=== PATIENT | female | born 1990 | race Two or more races ===

== ENCOUNTER 2023-04-12 13:30 | Emergency (ER) | payer MEDICAID ==
[2023-04-12 15:57] LABS: Urine Bacteria MANY /hpf (None Seen); Urine Blood 1+ /uL (Negative); Urine Clarity HAZY (Clear); Urine Color Yellow (Yellow); Urine Mucus FEW (None Seen); Urine Protein, UAD TRACE (Negative); Urine Specific Gravity 1.036 (1.001-1.035); Urine Urobilinogen Normal (Negative); Urine WBC 4 /hpf (0 - 5); Urine pH 5.5 (5.0-8.0)
[2023-04-12] MEDS ORDERED: METR-344 PO (19:20)
[2023-04-12 19:37] VITALS: BP 110/47; PULSE 61; RESP 18; TEMP 98.5; O2SAT 99
== END 2023-04-12 19:38 | disposition home or self-care (01) ==
LOC: ER 13:30
DX: N76.0 Acute vaginitis (principal)
CPT/HCPCS: 81001; 81025; 86256

== ENCOUNTER 2024-05-12 17:33 | Emergency (ER) | payer MEDICAID ==
[~2024-05-12] VITALS: Ht 162.6 cm; Wt 67.0 kg
[~2024-05-12 17:33] MED LIST: METR-344 PO
[2024-05-12 18:04] VITALS: BP 106/56; PULSE 75; RESP 21; TEMP 98.3; O2SAT 99
[2024-05-12] MEDS: KETOROLAC TROMETH 60MG/2ML VIAL IM ONE (18:19)
[2024-05-12] MEDS ORDERED: METH-1181 PO (18:58)
[2024-05-12] MEDS ORDERED: METH4PAK PO (18:58)
== END 2024-05-12 19:03 | disposition home or self-care (01) ==
LOC: ER 17:33
DX: S33.8XXA Sprain of other parts of lumbar spine and pelvis, initial encounter (principal); Z79.899 Other long term (current) drug therapy; X58.XXXA Exposure to other specified factors, initial encounter; Y93.89 Activity, other specified; Y92.89 Other specified places as the place of occurrence of the external cause; Y99.8 Other external cause status
CPT/HCPCS: 72100; 96372; 99283; J1885

== ENCOUNTER 2024-08-24 18:52 | Emergency (ER) | payer MEDICAID ==
[~2024-08-24] VITALS: Ht 162.6 cm; Wt 69.2 kg
[~2024-08-24 18:52] MED LIST changes: +METH-1181 PO; +METH4PAK PO
[2024-08-24 20:00] VITALS: BP 125/80; PULSE 70; RESP 18; O2SAT 99
--- NOTE | 2024-08-24 20:31 | ED.PDOC ---
SQL PROGRAMMER ANALYST HPI Comments 33Y F with PMHx presents to ED for chief complaint vaginal bleeding x2days with suprapubic cramping x4days. Pt states she sees blood when wiping. Pt is currently 6.5 weeks with LMP 07/10/2024. SQL PROGRAMMER ANALYST hx . Pt denies n/v/d, dysuria, chest pain, and SOB. Pt is currently taking vitamins. SQL PROGRAMMER ANALYST appt is pending. No other symptoms reported. Chief Complaint: Time Seen by MD: 20:22 Reviewed Notes: Nurses Notes, Computer System Technician Notes, Medications Allergies: Coded Allergies: NO KNOWN ALLERGIES (Unverified , 04/12/23) Home Meds Active Scripts Cephalexin Monohydrate (Cephalexin) 500 Mg Cap, 500 MG PO Q6HR for 5 Days, #20 CAP Prov:CHRISTINA HINOJOSA MD 08/24/24 Methocarbamol (Methocarbamol) 500 Mg Tab, 500 MG PO HS for 7 Days, #7 TAB Prov:DEBRA ERNST SHOE REPAIRMAN 05/12/24 Methylprednisolone (Medrol Dosepak) 4 Mg Alexey, 4 MG PO UD for 6 Days, #21 TAB UAD Prov:DEBRA ERNSTP 05/12/24 Metronidazole (Flagyl) 500 Mg Tab, 1 TAB PO BID for 7 Days, #14 TAB Prov:ISIDRA MORAES [facility] 04/12/23 Information Source: Patient Mode of Arrival: Ambulatory Timing: Days Severity: Mild Vaginal Discharge: None Vaginal Lesions: None Vaginal Mass: None Onset Of Mass/Bleeding: Spontaneous Sexual Activity: Last Consensual [place]: Unknown Control: None History of: Current Blood Type: Unknown Associated Signs and Symptoms: Vaginal Bleeding, Cramping Past Medical History PAST MEDICAL HISTORY: Denies Surgical History: NET PROGRAMMER History: No Pertinent NET PROGRAMMER History Family History Family History: Reviewed,noncontributory to illness Social History Smoker: Non-Smoker Alcohol: Denies ETOH Use Drugs: Denies Drug Use Lives In: Home Constitutional: denies: chills, diaphoresis, fatigue, fever, malaise, sweats, weakness, others EENTM: denies: blurred vision, double vision, ear bleeding, ear discharge, ear drainage, ear pain, ear ringing, eye pain, eye redness, hearing loss, mouth pain, mouth swelling, nasal discharge, nose bleeding, nose congestion, nose pain, photophobia, tearing, throat pain, throat swelling, voice changes, others Respiratory: denies: cough, hemoptysis, orthopnea, SOB at rest, shortness of breath, SOB with excertion, stridor, wheezing, others Cardiovascular: denies: chest pain, dizzy spells, diaphoresis, Dyspnea on exertion, edema, irregular heart beat, left arm pain, lightheadedness, pal pitations, PND, syncope, others Gastrointestinal: denies: abdomen distended, abdominal pain, blood streaked bowels, constipated, diarrhea, dysphagia, difficulty swallowing, hematemesis, melena, nausea, poor appetite, poor fluid intake, rectal bleeding, rectal pain, vomiting, others Genitourinary: reports: abnormal vagina bleeding, pain, ; denies: burning, dyspareunia, dysuria, flank pain, frequency, hematuria, incontinence, vagina discharge, urgency, others Neurological: denies: dizziness, fainting, headache, left sided numbness, left sided weakness, numbness, paresthesia, pre-existing deficit, right sided numbness, right sided weakness, seizure, speech problems, tingling, tremors, weakness, others Musculoskeletal: denies: back pain, gout, joint pain, joint swelling, muscle pain, muscle stiffness, neck pain, others Integumetry: denies: bruises, change in color, change in hair/nails, dryness, laceration, lesions, lumps, rash, wounds, others Allergic/Immunocompromised: denies: Difficulty Healing, Frequent Infections, Hives, Itching, others Hematologic/Lymphatic: denies: anemia, blood clots, easy bleeding, easy bruising, swollen glands, others Endocrine: denies: excessive hunger, excessive sweating, excessive thirst, excessive urination, flushing, intolerance to cold, intolerance to heat, unexplained weight gain, unexplained weight loss, others Psychiatric: denies: anxiety, bipolar disorder, depression, hopeless, panic disorder, schizophrenia, sleepless, suicidal, others All Other Systems: Reviewed and Negative Physical Exam General Appearance: No Apparent Distress, Normal HEENT: Normal ENT Inspection, Pharynx Normal, TMs Normal Neck: Full Range of Motion, Non-Tender, Normal, Normal Inspection Respiratory: Chest Non-Tender, Lungs Clear, No Accessory Muscle Use, No Respiratory Distress, Normal Breath Sounds Cardiovascular: No Edema, No JVD, No Murmur, No Gallop, Normal Peripheral Pulses, Regular Rate/Rhythm Breast Exam: Deferred Gastrointestinal: No Organomegaly, Non Tender, No Pulsatile Mass, Normal Bowel Sounds, Soft Genitalia: Deferred Pelvic: Deferred Rectal: Deferred Extremities: No calf tenderness, Normal capillary refill, Normal inspection, Normal range of motion, Non-tender, No pedal edema Musculoskeletal : Apperance: Normal Neurologic: Alert, wind farm support specialist II-XII nml as Tested, No Motor Deficits, Normal Affect, Normal Mood, No Sensory Deficits Cerebellar Function: Normal Reflexes: Normal Skin: Dry, Normal Color, Warm Lymphatic: No Adenopathy Was a procedure done? Was a procedure done?: No Differential Diagnosis (NET PROGRAMMER) Vaginal Bleeding: - Threatened, Ectopic , UTI X-Ray, Labs, Meds, VS Vital Signs Date Time Temp Pulse Resp B/P (MAP) Pulse Ox O2 Delivery O2 Flow Rate FiO2 08/24/24 20:00 98.0 70 18 125/80 (95) 99 Lab Test 08/24/24 20:32 08/24/24 20:00 Range/Units White Blood Count 7.5 4.4-10.8 10^3/uL Red Blood Count 4.69 4.0-5.20 10^6/uL Hemoglobin 14.2 12.2-16.2 g/dL Hematocrit 41.8 36.0-46.0 % Mean Corpuscular Volume 89.3 80.0-100.0 fL Mean Corpuscular Hemoglobin 30.3 28.0-32.0 pg Mean Corpuscular Hemoglobin Concent 34.0 32.0-36.0 g/dL Red Cell Distribution Width 13.7 11.8-14.3 % Platelet Count 255 140-450 10^3/uL Mean Platelet Volume 7.2 6.9-10.8 fL Neutrophils (%) (Auto) 50.2 37.0-80.0 % Lymphocytes (%) (Auto) 38.2 10.0-50.0 % Monocytes (%) (Auto) 9.7 0.0-12.0 % Eosinophils (%) (Auto) 1.6 0.0-7.0 % Basophils (%) (Auto) 0.3 0.0-2.0 % Neutrophils # (Auto) 3.8 1.6-8.6 10 ^3/uL Lymphocytes # (Auto) 2.9 0.4-5.4 10 ^3/uL Monocytes # (Auto) 0.7 0-1.3 10 ^3/uL Eosinophils # (Auto) 0.1 0-0.8 10 ^3/uL Basophils # (Auto) 0 0-0.2 10 ^3/uL Nucleated Red Blood Cells 0.1 % Sodium Level 138 136-145 mmol/L Potassium Level 3.8 3.5-5.1 mmol/L Chloride Level 107 98-107 mmol/L Carbon Dioxide Level 25 20-31 mmol/L Anion Gap 6 5-15 Blood Urea Nitrogen 11 9-23 mg/dL Creatinine 0.65 0.550-1.02 mg/dL Glomerular Filtration Rate Calc 120 >90 mL/min BUN/Creatinine Ratio 16.9 10.0-20.0 Serum Glucose 87 74-106 mg/dL Calcium Level 10.1 8.7-10.4 mg/dL Beta HCG, Quantitative 66846.9 H 1.5-4.2 mIU/mL Urine Color Light-yellow Yellow Urine Clarity Turbid H Clear Urine pH 6.0 5.0-9.0 Urine Specific [place] 1.021 1.001-1.035 Urine Protein Negative Negative Urine Ketones Negative Negative Urine Blood 2+ H Negative /uL Urine Nitrite Negative Negative Urine Bilirubin Negative Negative Urine Urobilinogen Normal Negative mg/dL Urine Leukocyte Esterase 1+ Negative /uL Urine RBC 9 0 - 4 /hpf Urine WBC 4 0 - 5 /hpf Urine Squamous Epithelial Cells Few <5 /hpf Urine Bacteria Mod H None Seen /hpf Urine Mucus Few None Seen Urine Glucose Normal Normal mg/dL Urine Test Positive Negative X-Ray, Labs, Meds, VS Comment 33-year-old female approximately 6 weeks here today with lower abdominal cramping and vaginal spotting when she wipes. Vital signs stable, afebrile. Physical exam as above without any acute findings. Pelvic exam deferred as per patient's request. Labs overall reassuring without evidence of significant anemia. Patient also noted to be Rh positive, RhoGAM not indicated. UA with evidence of bacteriuria, patient was started on prescription for Keflex which was sent to her preferred pharmacy. We will ultrasound with evidence of single viable IUP. Patient was instructed to follow up with her OBGYN later this week for re-evaluation which she stated that she would be able to do. Roscoe martin was given strict return precautions for return of bleeding, or any other concerning signs or symptoms. Patient was discharged home in stable condition ambulating with a steady gait in no distress. Time of 1ST Reevaluation: 20:52 Reevaluation 1ST: Unchanged Patient Education/Counseling: Diagnosis, Treatment Family Education/Counseling: Diagnosis, Treatment Departure 1 Departure Time of Disposition: 22:32 Impression: Primary Impression: Threatened Additional Impression: Bacteriuria during Disposition: 01 HOME / SELF CARE / HOMELESS Condition: Stable e-Prescriptions Cephalexin Monohydrate (Cephalexin) 500 Mg Cap 500 MG PO Q6HR for 5 Days, #20 CAP Prov: CHRISTINA HINOJOSA MD 08/24/24 Critical Care Note Critical Care Time?: No Stability Stability form required: No Heart Score Heart Score: Heart Score Response (Comments) Value History N/A 0 EKG N/A 0 Age N/A 0 Risk Factors N/A 0 Troponin N/A 0 Total 0 I personally scribed for CHRISTINA HINOJOSA MD ([email or web address]) on 08/24/24 at 20:31. Electronically submitted by Isadora Soto ([email or web address]). CHRISTINA HINOJOSA MD Aug 24, 2024 20:31
[2024-08-24 20:51] LABS: Chloride 107 mmol/L (98-107); Potassium 3.8 mmol/L (3.5-5.1); Sodium 138 mmol/L (136-145)
[2024-08-24 20:52] LABS: Anion Gap 6 (5-15); Calcium 10.1 mg/dL (8.7-10.4); Carbon Dioxide 25 mmol/L (20-31)
[2024-08-24 20:57] LABS: BUN/Creatinine Ratio 16.9 (10.0-20.0); Basophils # (auto) 0 10 ^3/uL (0-0.2); Basophils % (auto) 0.3 % (0.0-2.0); Blood Urea Nitrogen 11 mg/dL (9-23); Eosinophils # (auto) 0.1 10 ^3/uL (0-0.8); Eosinophils % (auto) 1.6 % (0.0-7.0); Glucose 87 mg/dL (74-106); Hematocrit 41.8 % (36.0-46.0); Hemoglobin 14.2 g/dL (12.2-16.2); Lymphocytes # (auto) 2.9 10 ^3/uL (0.4-5.4); Lymphocytes % (auto) 38.2 % (10.0-50.0); Mean Corpuscular Hemoglobin 30.3 pg (28.0-32.0); Mean Corpuscular Volume 89.3 fL (80.0-100.0); Monocytes # (auto) 0.7 10 ^3/uL (0-1.3); Monocytes % (auto) 9.7 % (0.0-12.0); Neutrophils # (auto) 3.8 10 ^3/uL (1.6-8.6); Neutrophils % (auto) 50.2 % (37.0-80.0); Nucleated Red Blood Cells % 0.1 %; Platelet Count (auto) 255 10^3/uL (140-450); Red Blood Cells 4.69 10^6/uL (4.0-5.20); Red Cell Distribution Width 13.7 % (11.8-14.3); White Blood Cell 7.5 10^3/uL (4.4-10.8)
[2024-08-24 21:17] LABS: Urine Bacteria MOD /hpf (None Seen); Urine Blood 2+ /uL (Negative); Urine Clarity Turbid (Clear); Urine Color Light-Yellow (Yellow); Urine Mucus FEW (None Seen); Urine Protein, UAD Negative (Negative); Urine Specific Gravity 1.021 (1.001-1.035); Urine Squamous Epithelial Cell FEW /hpf (<5); Urine Urobilinogen Normal (Negative); Urine WBC 4 /hpf (0 - 5)
--- NOTE | 2024-08-24 22:12 | DVH ---
OBSTETRIC ULTRASOUND PRIOR TO 14 WEEKS CLINICAL INDICATION: blood streaks when wiping beta-hCG 42124 TECHNIQUE: Multiple grayscale ultrasound images were obtained of the pelvis via transabdominal and tr ansvaginal approach for obstetric evaluation. Limited color Doppler and spectral Doppler acquisitions were also obtained. COMPARISON: None FINDINGS: Uterus: 8.0 x 6.1 x 6.0 cm. Nabothian cyst in the cervix There is a single intrauterine gestational s ac is visualized. A pole is visualized measuring 0.09 cm compatible with an estimated gestation al age of 5 weeks, 6 days. cardiac activity is present with heart rate of 111 beats per minute . A normal yolk sac is present. Right adnexa: right ovary 3.4 x 1.8 x 2.4 cm. Normal arterial blood flow in the ovary. No right adnex al mass seen. Left adnexa: left ovary 3.4 x 2.1 x 2.6 cm. Normal arterial blood flow in the ovary. No left adnexal mass seen. Small cyst in the left ovary measures up to 1.6 cm with peripheral vascularity likely a co rpus luteum cyst. Other: None IMPRESSION: Single living intrauterine with an estimated gestational age of 5 weeks, 6 days, correspo nding to an estimated date of delivery of 04/20/2025.
[2024-08-24] MEDS ORDERED: CEPH500C PO (22:30)
== END 2024-08-24 23:10 | disposition home or self-care (01) ==
LOC: ER 18:52
DX: O20.0 Threatened abortion (principal); O99.891 Other specified diseases and conditions complicating pregnancy; R82.71 Bacteriuria; Z3A.01 Less than 8 weeks gestation of pregnancy; Z98.890 Other specified postprocedural states; Z79.899 Other long term (current) drug therapy
CPT/HCPCS: 36415; 76801; 76817; 80048; 81001; 81025; 84702; 85025; 86850; 86900; 86901

== ENCOUNTER 2024-09-18 07:28 | Emergency (ER) | payer MEDICAID ==
[~2024-09-18] VITALS: Ht 167.6 cm; Wt 69.2 kg
[~2024-09-18 07:28] MED LIST changes: +CEPH500C PO
[2024-09-18 07:31] VITALS: PULSE 82; RESP 16; O2SAT 98
--- NOTE | 2024-09-18 08:16 | ED.PDOC ---
OPERATIONS BUSINESS PARTNER HPI Comments 34 year old female presents to the ED with chief complaint of vaginal bleeding during . Patient reports that she has been experiencing worsening vaginal bleeding with associated abdominal cramping since Tuesday, saturating 2 pads since this morning. Patient relays that her LMP was on 07/10 and she is currently 10 weeks . Patient states she has not seen her OBGYN as of yet. Patient is . Patient denies any N/V, vaginal discharge, fever, chills, dizziness, or headache. Chief Complaint: Vaginal Bleed Time Seen by MD: 08:14 Reviewed Notes: Nurses Notes, Medications, Allergies Allergies: Coded Allergies: NO KNOWN ALLERGIES (Unverified , 04/12/23) Home Meds Active Scripts Cephalexin Monohydrate (Cephalexin) 500 Mg Cap, 500 MG PO Q6HR for 5 Days, #20 CAP Prov:CHRISTINA HINOJOSA MD 08/24/24 Methocarbamol (Methocarbamol) 500 Mg Tab, 500 MG PO HS for 7 Days, #7 TAB Prov:DEBRA ERNSTP 05/12/24 Methylprednisolone (Medrol Dosepak) 4 Mg Alexey, 4 MG PO UD for 6 Days, #21 TAB UAD Prov:DEBRA ERNSTP 05/12/24 Metronidazole (Flagyl) 500 Mg Tab, 1 TAB PO BID for 7 Days, #14 TAB Prov:ISIDRA MORAES [facility] 04/12/23 Information Source: Patient Mode of Arrival: Ambulatory Timing: Days Prehospital treatment: None Severity: Moderate Vaginal Discharge: None Vaginal Lesions: None Bleeding Quality: Bright Red Vaginal Mass: None Onset Of Mass/Bleeding: Spontaneous Sexual Activity: Last Consensual [place]: Unknown Control: None History of: Current Associated Signs and Symptoms: Vaginal Bleeding, Abdominal Pain Past Medical History PAST MEDICAL HISTORY: Denies Surgical History: GUM MACHINE OPERATOR History: No Pertinent GUM MACHINE OPERATOR History 3 Para 2 Family History Family History: Reviewed,noncontributory to illness Social History Smoker: Non-Smoker Alcohol: Denies ETOH Use Drugs: Denies Drug Use Lives In: Home Constitutional: denies: chills, diaphoresis, fatigue, fever, malaise, sweats, weakness, others EENTM: denies: blurred vision, double vision, ear bleeding, ear discharge, ear drainage, ear pain, ear ringing, eye pain, eye redness, hearing loss, mouth pain, mouth swelling, nasal discharge, nose bleeding, nose congestion, nose pain, photophobia, tearing, throat pain, throat swelling, voice changes, others Respiratory: denies: cough, hemoptysis, orthopnea, SOB at rest, shortness of breath, SOB with excertion, stridor, wheezing, others Cardiovascular: denies: chest pain, dizzy spells, diaphoresis, Dyspnea on exertion, edema, irregular heart beat, left arm pain, lightheadedness, palpitat ions, PND, syncope, others Gastrointestinal: reports: abdominal pain; denies: abdomen distended, blood streaked bowels, constipated, diarrhea, dysphagia, difficulty swallowing, hematemesis, melena, nausea, poor appetite, poor fluid intake, rectal bleeding, rectal pain, vomiting, others Genitourinary: reports: abnormal vagina bleeding, ; denies: burning, dyspareunia, dysuria, flank pain, frequency, hematuria, incontinence, pain, vagina discharge, urgency, others Neurological: denies: dizziness, fainting, headache, left sided numbness, left sided weakness, numbness, paresthesia, pre-existing deficit, right sided numbness, right sided weakness, seizure, speech problems, tingling, tremors, weakness, others Musculoskeletal: denies: back pain, gout, joint pain, joint swelling, muscle pain, muscle stiffness, neck pain, others Integumetry: denies: bruises, change in color, change in hair/nails, dryness, laceration, lesions, lumps, rash, wounds, others Allergic/Immunocompromised: denies: Difficulty Healing, Frequent Infections, Hives, Itching, others Hematologic/Lymphatic: denies: anemia, blood clots, easy bleeding, easy bruising, swollen glands, others Endocrine: denies: excessive hunger, excessive sweating, excessive thirst, excessive urination, flushing, intolerance to cold, intolerance to heat, unexplained weight gain, unexplained weight loss, others Psychiatric: denies: anxiety, bipolar disorder, depression, hopeless, panic disorder, schizophrenia, sleepless, suicidal, others All Other Systems: Reviewed and Negative Physical Exam General Appearance: No Apparent Distress, Normal HEENT: Normal ENT Inspection, PERRL/EOMI Neck: Full Range of Motion, Non-Tender, Normal, Normal Inspection Respiratory: Chest Non-Tender, Lungs Clear, No Accessory Muscle Use, No Respi ratory Distress, Normal Breath Sounds Cardiovascular: No Edema, No JVD, No Murmur, No Gallop, Normal Peripheral Pulses, Regular Rate/Rhythm Breast Exam: Deferred Gastrointestinal: No Organomegaly, Non Tender, No Pulsatile Mass, Normal Bowel Sounds, Soft Genitalia: Deferred Pelvic: Deferred Rectal: Deferred Extremities: No calf tenderness, Normal capillary refill, Normal inspection, Normal range of motion, Non-tender, No pedal edema Musculoskeletal : Apperance: Normal Neurologic: Alert, rotary planer set up operator II-XII nml as Tested, No Motor Deficits, Normal Affect, Normal Mood, No Sensory Deficits Cerebellar Function: Normal Reflexes: Normal Skin: Dry, Normal Color, Warm Lymphatic: No Adenopathy Was a procedure done? Was a procedure done?: No Differential Diagnosis (GUM MACHINE OPERATOR) Vaginal Bleeding: - Threatened X-Ray, Labs, Meds, VS Vital Signs Date Time Temp Pulse Resp B/P (MAP) Pulse Ox O2 Delivery O2 Flow Rate FiO2 09/18/24 09:30 98.7 71 17 124/83 (97) 97 98.7 09/18/24 07:31 82 16 98 Room Air* 0 21 09/18/24 07:31 98.0 82 16 117/50 (72) 98 98.0 09/18/24 07:31 98.0 82 16 117/50 (72) 98 Lab Test 09/18/24 08:00 09/18/24 07:34 Range/Units White Blood Count 7.6 4.4-10.8 10^3/uL Red Blood Count 4.53 4.0-5.20 10^6/uL Hemoglobin 14.1 12.2-16.2 g/dL Hematocrit 40.7 36.0-46.0 % Mean Corpuscular Volume 89.8 80.0-100.0 fL Mean Corpuscular Hemoglobin 31.2 28.0-32.0 pg Mean Corpuscular Hemoglobin Concent 34.7 32.0-36.0 g/dL Red Cell Distribution Width 14.3 11.8-14.3 % Platelet Count 246 140-450 10^3/uL Mean Platelet Volume 7.4 6.9-10.8 fL Neutrophils (%) (Auto) 69.3 37.0-80.0 % Lymphocytes (%) (Auto) 22.4 10.0-50.0 % Monocytes (%) (Auto) 7.4 0.0-12.0 % Eosinophils (%) (Auto) 0.6 0.0-7.0 % Basophils (%) (Auto) 0.3 0.0-2.0 % Neutrophils # (Auto) 5.2 1.6-8.6 10 ^3/uL Lymphocytes # (Auto) 1.7 0.4-5.4 10 ^3/uL Monocytes # (Auto) 0.6 0-1.3 10 ^3/uL Eosinophils # (Auto) 0 0-0.8 10 ^3/uL Basophils # (Auto) 0 0-0.2 10 ^3/uL Nucleated Red Blood Cells 0.1 % Sodium Level 138 136-145 mmol/L Potassium Level 3.6 3.5-5.1 mmol/L Chloride Level 104 98-107 mmol/L Carbon Dioxide Level 25 20-31 mmol/L Anion Gap 9 5-15 Blood Urea Nitrogen 7 L 9-23 mg/dL Creatinine 0.53 L 0.550-1.02 mg/dL Glomerular Filtration Rate Calc 125 >90 mL/min BUN/Creatinine Ratio 13.2 10.0-20.0 Serum Glucose 89 74-106 mg/dL Calcium Level 10.1 8.7-10.4 mg/dL Beta HCG, Quantitative 38611.7 H 1.5-4.2 mIU/mL Urine Color Dark-red Yellow Urine Clarity Ex.turbid Clear Urine pH 6.5 5.0-9.0 Urine Specific [place] 1.028 1.001-1.035 Urine Protein 2+ H Negative Urine Ketones Negative Negative Urine Blood 3+ H Negative /uL Urine Nitrite Negative Negative Urine Bilirubin 1+ H Negative Urine Urobilinogen Normal Negative mg/dL Urine Leukocyte Esterase Negative Negative /uL Urine RBC [id number] 0 - 4 /hpf Urine Microscopic WBC 3195 H 0-5 /HPF Urine Squamous Epithelial Cells None seen <5 /hpf Urine Bacteria Many H None Seen /hpf Urine Glucose Normal Normal mg/dL OB US: FINDINGS: The uterus measures 10.8 x 6.7 x 8.9 cm The cervix is not visualized Right ovary measures 2.8 x 1.1 x 2.0 cm with normal Doppler color flow. Left ovary measures 3.0 x 1.8 x 2.4 cm with normal Doppler color flow. IUP single fetus at 10 weeks and 4 days average ultrasound age based on mean crown-rump length of 3.06 cm and gestational sac size of 5.13 cm heart rate detected at 178 beats per minute. Yolk sac is not visualized. Amniotic fluid is subjectively within normal limits. Carmen-gestational space: Crescentic hypoechoic region measuring 1.9 x 0.7 x 1.3 cm. IMPRESSION: IUP single live fetus 10 weeks and 4 days AUA corresponding to an NATALIO of 04/12/2025. Small subchorionic hematoma is present measuring 1.9 x 0.7 x 1.3 cm. Close clinical and sonographic follow-up advised. Images Reviewed?: Images reviewed and evaluated by me Time of 1ST Reevaluation: 09:14 Reevaluation 1ST: Unchanged Patient Education/Counseling: Diagnosis, Treatment Family Education/Counseling: No Family Present Additional Information I reviewed the following notes from patient's past medical encounters: 08/24/24 for threatened The following tests were ordered, and results were reviewed by me: OB US, UA, CBC, BMP, Beta HCG, ABORH Type I reviewed and agreed with the following test results read by other providers: OB US Additional Information was gathered from interviewing the following independent historians: None I discussed treatment and results with medical personnel. Departure 1 Departure Time of Disposition: 10:50 (Patient with a threatened . We will discharge with antibiotics for urinary tract infection however have close clinical follow up.) Impression: Primary Impression: Threatened Additional Impression: Urinary tract infection Qualified Codes: N30.01 - Acute cystitis with hematuria Disposition: HOME / SELF CARE / HOMELESS Condition: Stable Additional Instructions: You have a threatened miscarriage. Your beta hcg level today was 85,455. . Your ultrasound showed a healthy fetus with a subchorionic hematoma. You also have a urinary tract infection. You should follow up with OBGYN within three days to recheck your blood work. If your symptoms worsen or you have any other concerns then please return to the ER. e-Prescriptions Cephalexin Monohydrate (Cephalexin) 500 Mg Cap 500 MG PO Q6HR for 5 Days, #20 MG Prov: OBDULIA DÍAZ MD 09/18/24 Discharged With: Self Critical Care Note Critical Care Time?: No Stability Stability form required: No Heart Score Heart Score: Heart Score Response (Comments) Value History N/A 0 EKG N/A 0 Age N/A 0 Risk Factors N/A 0 Troponin N/A 0 Total 0 I personally scribed for OBDLUIA DÍAZ MD ([email or web address]) on 09/18/24 at 08:16. Electronically submitted by Teja Rivera ([email or web address]). I personally scribed for OBDULIA DÍAZ MD ([email or web address]) on 09/18/24 at 09:26. Electronically submitted by Teja Rivera ([email or web address]). OBDULIA DÍAZ MD Sep 18, 2024 08:16
[2024-09-18 08:41] LABS: Urine Bacteria MANY /hpf (None Seen); Urine Blood 3+ /uL (Negative); Urine Clarity Ex.Turbid (Clear); Urine Protein, UAD 2+ (Negative); Urine Specific Gravity 1.028 (1.001-1.035); Urine Squamous Epithelial Cell None Seen /hpf (<5); Urine Urobilinogen Normal (Negative); Urine WBC 3195 /HPF (0-5); Urine pH 6.5 (5.0-9.0)
[2024-09-18 08:49] LABS: Urine Color Dark-Red (Yellow)
--- NOTE | 2024-09-18 08:56 | DVH ---
OB ULTRASOUND <14 WEEKS: HISTORY: abdominal pain and vaginal bleeding TECHNIQUE: Multiple real-time grayscale sonographic images of the pelvis with duplex Doppler color f low, spectral and M-mode analysis. TRANSDUCERS: Transabdominal COMPARISON: None FINDINGS: The uterus measures 10.8 x 6.7 x 8.9 cm The cervix is not visualized Right ovary measures 2.8 x 1.1 x 2.0 cm with normal Doppler color flow. Left ovary measures 3.0 x 1.8 x 2.4 cm with normal Doppler color flow. IUP single fetus at 10 weeks and 4 days average ultrasound age based on mean crown-rump length of 3. 06 cm and gestational sac size of 5.13 cm heart rate detected at 178 beats per minute. Yolk sac is not visualized. Amniotic fluid is subjectively within normal limits. Carmen-gestational space: Crescentic hypoechoic region measuring 1.9 x 0.7 x 1.3 cm. IMPRESSION: IUP single live fetus 10 weeks and 4 days AUA corresponding to an NATALIO of 04/12/2025. Small subchorionic hematoma is present measuring 1.9 x 0.7 x 1.3 cm. Close clinical and sonographic follow-up advised.
[2024-09-18 08:59] LABS: Basophils # (auto) 0 10 ^3/uL (0-0.2); Basophils % (auto) 0.3 % (0.0-2.0); Chloride 104 mmol/L (98-107); Eosinophils # (auto) 0 10 ^3/uL (0-0.8); Eosinophils % (auto) 0.6 % (0.0-7.0); Hematocrit 40.7 % (36.0-46.0); Hemoglobin 14.1 g/dL (12.2-16.2); Lymphocytes # (auto) 1.7 10 ^3/uL (0.4-5.4); Lymphocytes % (auto) 22.4 % (10.0-50.0); Mean Corpuscular Hemoglobin 31.2 pg (28.0-32.0); Mean Corpuscular Hgb Conc. 34.7 g/dL (32.0-36.0); Mean Corpuscular Volume 89.8 fL (80.0-100.0); Monocytes # (auto) 0.6 10 ^3/uL (0-1.3); Monocytes % (auto) 7.4 % (0.0-12.0); Neutrophils # (auto) 5.2 10 ^3/uL (1.6-8.6); Neutrophils % (auto) 69.3 % (37.0-80.0); Nucleated Red Blood Cells % 0.1 %; Platelet Count (auto) 246 10^3/uL (140-450); Potassium 3.6 mmol/L (3.5-5.1); Red Blood Cells 4.53 10^6/uL (4.0-5.20); Red Cell Distribution Width 14.3 % (11.8-14.3); Sodium 138 mmol/L (136-145); White Blood Cell 7.6 10^3/uL (4.4-10.8)
[2024-09-18 09:00] LABS: Anion Gap 9 (5-15); Carbon Dioxide 25 mmol/L (20-31)
[2024-09-18 09:01] LABS: Calcium 10.1 mg/dL (8.7-10.4)
[2024-09-18 09:05] LABS: Glucose 89 mg/dL (74-106)
[2024-09-18 09:06] LABS: BUN/Creatinine Ratio 13.2 (10.0-20.0)
[2024-09-18 09:30] VITALS: BP 124/83; PULSE 71; RESP 17; TEMP 98.7; O2SAT 97
[2024-09-18 09:34] LABS: Blood Urea Nitrogen 7 mg/dL (9-23)
[2024-09-18] MEDS ORDERED: CEPH500C PO (10:53)
[2024-09-18] MEDS: CEPHALEXIN 250 MG CAP PO ONE (11:16)
== END 2024-09-18 11:22 | disposition home or self-care (01) ==
LOC: ER 07:28
DX: O20.0 Threatened abortion (principal); O23.41 Unspecified infection of urinary tract in pregnancy, first trimester; N39.0 Urinary tract infection, site not specified; Z3A.10 10 weeks gestation of pregnancy; Z79.899 Other long term (current) drug therapy
CPT/HCPCS: 36415; 76801; 80048; 81001; 84702; 85025; 86900; 86901